=== PATIENT | male | born 1985 | race Two or more races ===

== ENCOUNTER 2016-04-27 14:52 | Emergency (ER) | payer OTHER ==
[~2016-04-27] VITALS: Ht 175.3 cm; Wt 67.6 kg
--- NOTE | 2016-04-27 15:05 | NUR ---
PT BIB [employer] FOR OTB C/O FOREHEAD SCRATCH. DENIES COMPLAINTS. NAD NOTED. IN ER BED 15.
--- NOTE | 2016-04-27 15:11 | NUR ---
Patient discharged IN [employer] CUSTODY in stable condition. Written and verbal after care instructions given. Patient verbalizes understanding of instruction.
[2016-04-27 15:19] VITALS: BP 139/82
== END 2016-04-27 15:20 ==
LOC: ER 14:57
DX: S00.81XA Abrasion of other part of head, initial encounter (principal); Y08.89XA Assault by other specified means, initial encounter; Y93.89 Activity, other specified; Y92.89 Other specified places as the place of occurrence of the external cause; Y99.8 Other external cause status; S00.03XA Contusion of scalp, initial encounter
CPT/HCPCS: 99283; A4606; Z7610